=== PATIENT | female | born 1990 | race Caucasian/White ===

== ENCOUNTER 2016-12-07 15:09 | Emergency (ER) | payer MEDICAID, OTHER ==
[2016-12-07 15:15] VITALS: TEMP 98.6
[2016-12-07] MEDS ORDERED: NS 1,000 ML IV ONE ×2 (16:01→17:31)
[2016-12-07] MEDS ORDERED: ONDANSETRON 4 MG/2 ML VIAL IVP ONE ×2 (16:01→17:31)
[2016-12-07] MEDS ORDERED: ACETAMINOPHEN 500 MG TAB ONE (16:06)
[2016-12-07 16:09] LABS: % IMMATURE GRANULYOCYTES 0.3 % (0.0-1.1); ABSOLUTE IMMATURE GRANULOCYTES 0.04 10^3/uL (0.00-0.10); ADD DIFF? NO; ADD MORPH? NO; ADD SCAN? NO; ATYPICAL LYMPHOCYTE FLAG 0 (0-99); FRAGMENT RBC FLAG 0 (0-99); HEMATOCRIT 42.3 % (38.0-47.0); HEMOGLOBIN 14.1 g/dL (12.6-16.3); LEFT SHIFT FLG 0 (0-99); LIPEMIA HEMOLYSIS FLAG 80 (0-99); MEAN CELL HEMOGLOBIN 31.7 pg (27.9-34.1); MEAN CELL HEMOGLOBIN CONCENTR. 33.3 g/dL (32.4-36.7); MEAN CELL VOLUME 95.1 fL (81.5-99.8); PLATELET CLUMPS FLAG 10 (0-99); PLATELET COUNT 373 10^3/uL (150-400); RED BLOOD CELL COUNT 4.45 10^6/uL (4.18-5.33); RED CELL DISTRIBUTION WIDTH 11.9 % (11.5-15.2)
[2016-12-07] MEDS ORDERED: ACETAMINOPHEN 500 MG TAB PO ONE (16:11)
--- NOTE | 2016-12-07 16:12 | EDPHY ---
H & P Smoking Status: Never smoked Time Seen by Provider: 12/07/16 15:24 HPI/ROS: CHIEF COMPLAINT: Abdominal pain HISTORY OF PRESENT ILLNESS: 26-year-old female presents to the emergency department by private vehicle complaining of left and right lower quadrant abdominal pain. The patient states that the pain began rather abruptly approximately 2 hours prior to arrival. She states that it was so severe that she did not feel that she could walk. She felt that it was equal on both the left and the right lower side of her abdomen. She thinks that this is related to her ovaries. She has not had problems with ovarian cysts in the past. Denies any reported trauma. Denies any urinary symptoms. Denies chest pain or difficulty breathing. No back pain. Last menstrual period was 3 weeks ago. REVIEW OF SYSTEMS: Constitutional: No fever, no chills. Eyes: No double or blurry vision. ENT: No sore throat. Respiratory: No cough, no shortness of breath. Cardiac: No chest pain. Gastrointestinal: Abdominal pain as above. No vomiting or diarrhea Genitourinary: No dysuria. Musculoskeletal: No neck or back pain. Skin: No rashes. Neurological: No headache. (Fiordaliza Salomon) Past Medical/Surgical History: Recently treated for Helicobacter pylori (Aime,Fiordaliza M) Social History: and lives in [place] (Aime,Fiordaliza M) Physical Exam: General Appearance: Alert, no distress. Eyes: Pupils equal and round. Extraocular motions are all intact. ENT: Mouth: Mucous membranes moist. Respiratory: No wheezing, rhonchi, or rales, lungs are clear to auscultation. Cardiovascular: Regular rate and rhythm. Gastrointestinal: Abdomen is soft. She has tenderness with palpation mildly in the epigastric area as well as the left and the right lower quadrant. No rebound, guarding or masses noted. No CVA tenderness bilaterally. Neurological: Alert and oriented x 3, cranial nerves II through XII grossly intact Skin: Warm and dry, no rashes. Musculoskeletal: Nontender to palpate along the cervical, thoracic or lumbar spine. Neck is supple. Extremities: Full range of motion and no peripheral edema. Psychiatric: Patient is oriented X 3, there is no agitation. (Jerilyn Salomona M) Constitutional: Initial Vital Signs Temperature (C) 37 C 12/07/16 15:12 Heart Rate 84 08/30/17 15:12 Respiratory Rate 18 12/07/16 15:12 Blood Pressure 122/84 H 12/07/16 15:12 O2 Sat (%) 97 12/07/16 15:12 O2 Delivery Mode Room Air Allergies/Adverse Reactions: NSAIDS (Non-Steroidal Anti-Inflamma Allergy (Verified 12/07/16 15:11) Home Medications: Medication Instructions Recorded Hydrocodone/APAP 5/325 [[place] 1 tab PO Q6H PRN #10 tab 12/07/16 5/325 (RX)] Medical Decision Making - Diagnostics Imaging Results: Imaging Impressions Abdomen Ultrasound 12/07/16 16:02 Impression: 1. Complex hemorrhagic cyst versus less likely endometrioma left ovary. 2. Normal-appearing uterus and right ovary. 3. Normal appendix in the right lower quadrant. Findings discussed with Dr. Paula Pritchett at 17:23 hour, 12/07/2016. Pelvic/Renal Ultrasound 12/07/16 16:02 Impression: 1. Complex hemorrhagic cyst versus less likely endometrioma left ovary. 2. Normal-appearing uterus and right ovary. 3. Normal appendix in the right lower quadrant. Findings discussed with Dr. Paula Pritchett at 17:23 hour, 12/07/2016. ED Course/Re-evaluation: Ultrasound report called to me by Dr. Prado as demonstrating a 3.5 cm right ovarian hemorrhagic cyst. Left ovary is normal. Appendix is normal. Uterus is normal. On re-examination the patient reports her pain is feeling better. She does have mild bilateral lower adnexal tenderness to palpation. No flank tenderness. No urinary complaints. We discussed the patient's allergy nonsteroidals. She is currently being treated for H pylori and taking nonsteroidals by mouth causes her to have significant abdominal upset. We will try Toradol 15 mg IV with Zofran for nausea. Patient's symptoms were improved with the Toradol. She was discharged with a prepack of hydrocodone and a prescription for hydrocodone. 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 Return precautions were discussed at length. (Paula Pritchett) Differential Diagnosis: Including but not limited to urinary tract infection, pyelonephritis, kidney stone, ovarian cyst, ovarian torsion, acute appendicitis, intrauterine , ectopic (Fiordaliza Salomon) - Data Points Laboratory Results: Laboratory Results 12/07/16 15:19 12/07/16 15:19 12/07/16 12/07/16 12/07/16 16:15 15:19 15:19 WBC RBC Hgb Hct MCV MCH MCHC RDW Plt Count MPV Neut % (Auto) Lymph % (Auto) [place] % (Auto) Eos % (Auto) Baso % (Auto) Nucleat RBC Rel Count Absolute Neuts (auto) Absolute Lymphs (auto) Absolute Monos (auto) Absolute Eos (auto) Absolute Basos (auto) Absolute Nucleated RBC Immature Gran % Immature Gran # Sodium 139 mEq/L mEq/L (134-144) Potassium 4.0 mEq/L mEq/L (3.5-5.2) Chloride 102 mEq/L mEq/L (97-110) Carbon Dioxide 23 mEq/l mEq/l (22-31) Anion Gap 14 mEq/L mEq/L (8-16) BUN 13 mg/dL mg/dL (7-23) Creatinine 0.7 mg/dL mg/dL (0.6-1.0) Estimated GFR > 60 Glucose 81 mg/dL mg/dL (70-100) Calcium 10.3 mg/dL mg/dL (8.5-10.4) Beta HCG, Qual NEGATIVE Urine Color YELLOW Urine Appearance HAZY Urine pH 6.0 (5.0-7.5) Ur Specific [place] 1.023 (1.002-1.030) Urine Protein NEGATIVE (NEGATIVE) Urine Ketones NEGATIVE (NEGATIVE) Urine Blood NEGATIVE (NEGATIVE) Urine Nitrate NEGATIVE (NEGATIVE) Urine Bilirubin NEGATIVE (NEGATIVE) Urine Urobilinogen NEGATIVE EU EU (0.2-1.0) Ur Leukocyte Esterase NEGATIVE (NEGATIVE) Urine RBC 50-182 /hpf H /hpf (0-3) Urine WBC NONE SEEN /hpf /hpf (0-3) Ur Epithelial Cells 1+ /lpf /lpf (NONE-1+) Urine Mucus TRACE /lpf /lpf (NONE-1+) Urine Glucose NEGATIVE (NEGATIVE) 12/07/16 15:19 WBC 12.14 10^3/uL H 10^3/uL (3.80-9.50) RBC 4.45 10^6/uL 10^6/uL (4.18-5.33) Hgb 14.1 g/dL g/dL (12.6-16.3) Hct 42.3 % % (38.0-47.0) MCV 95.1 fL fL (81.5-99.8) MCH 31.7 pg pg (27.9-34.1) MCHC 33.3 g/dL g/dL (32.4-36.7) RDW 11.9 % % (11.5-15.2) Plt Count 373 10^3/uL 10^3/uL (150-400) MPV 10.0 fL fL (8.7-11.7) Neut % (Auto) 56.2 % % (39.3-74.2) Lymph % (Auto) 33.7 % % (15.0-45.0) [place] % (Auto) 5.4 % % (4.5-13.0) Eos % (Auto) 3.7 % % (0.6-7.6) Baso % (Auto) 0.7 % % (0.3-1.7) Nucleat RBC Rel Count 0.0 % % (0.0-0.2) Absolute Neuts (auto) 6.81 10^3/uL H 10^3/uL (1.70-6.50) Absolute Lymphs (auto) 4.09 10^3/uL H 10^3/uL (1.00-3.00) Absolute Monos (auto) 0.66 10^3/uL 10^3/uL (0.30-0.80) Absolute Eos (auto) 0.45 10^3/uL H 10^3/uL (0.03-0.40) Absolute Basos (auto) 0.09 10^3/uL 10^3/uL (0.02-0.10) Absolute Nucleated RBC 0.00 10^3/uL 10^3/uL (0-0.01) Immature Gran % 0.3 % % (0.0-1.1) Immature Gran # 0.04 10^3/uL 10^3/uL (0.00-0.10) Sodium Potassium Chloride Carbon Dioxide Anion Gap BUN Creatinine Estimated GFR Glucose Calcium Beta HCG, Qual Urine Color Urine Appearance Urine pH Ur Specific [place] Urine Protein Urine Ketones Urine Blood Urine Nitrate Urine Bilirubin Urine Urobilinogen Ur Leukocyte Esterase Urine RBC Urine WBC Ur Epithelial Cells Urine Mucus Urine Glucose Medications Given: Discontinued Medications Acetaminophen (Tylenol) 1,000 mg PO EDNOW ONE Stop: 12/07/16 16:12 Last Admin: 12/07/16 16:15 Dose: 1,000 mg Hydrocodone Bitart/Acetaminophen ([place] 5/325mg Prepack#6) 1 btl TAKEHOME EDNOW ONE Stop: 12/07/16 17:57 Last Admin: 12/07/16 19:18 Dose: 1 btl Sodium Chloride (Ns) 1,000 mls @ 0 mls/hr IV ONCE ONE PRN Reason: Wide Open Stop: 12/07/16 16:02 Last Admin: 12/07/16 16:15 Dose: 1,000 mls Sodium Chloride (Ns) 1,000 mls @ 0 mls/hr IV ONCE ONE; Wide Open PRN Reason: Protocol Stop: 12/07/16 17:32 Last Admin: 12/07/16 17:36 Dose: 1,000 mls Ketorolac Tromethamine (Toradol) 15 mg IVP EDNOW ONE Stop: 12/07/16 17:32 Last Admin: 12/07/16 17:37 Dose: 15 mg Ondansetron HCl (Zofran) 4 mg IVP EDNOW ONE Stop: 12/07/16 16:02 Last Admin: 12/07/16 16:15 Dose: 4 mg Ondansetron HCl (Zofran) 4 mg IVP EDNOW ONE Stop: 12/07/16 17:32 Last Admin: 12/07/16 18:36 Dose: 4 mg Departure - Departure Disposition: Home, Routine, Self-Care Clinical Impression: Hemorrhagic cyst of left ovary Condition: Good Instructions: Hydrocodone/Acetaminophen (By mouth), Ovarian Cyst (ED), Ruptured Ovarian Cyst (ED) Additional Instructions: I believe the pain is related to a complex left hemorrhagic cyst. Treatment for this is pain medications initially. You need to follow-up with your OBGYN physician for re-evaluation and repeat ultrasound in several weeks to ensure that the cyst has resolved. Okay to take hydrocodone as needed for pain. For mild pain you may use Tylenol. Please return to the emergency department or seek care urgently if the pain is worsening despite the above treatment, he developed lightheadedness, dizziness, fainting, significant vaginal bleeding, worsening pain, or other concerns. Referrals: NONE *PRIMARY CARE P,. [Primary Care Provider] - As per Instructions Prescriptions: Hydrocodone/APAP 5/325 [[place] 5/325 (RX)] 1 tab PO Q6H PRN #10 tab PRN Reason: Pain
[2016-12-07 16:13] LABS: ANION GAP 14 mEq/L (8-16); CALCIUM 10.3 mg/dL (8.5-10.4); CARBON DIOXIDE 23 mEq/l (22-31); CHLORIDE 102 mEq/L (97-110); CREATININE 0.7 mg/dL (0.6-1.0); GLOMERULAR FILTRATION RATE > 60; GLUCOSE 81 mg/dL (70-100); SODIUM 139 mEq/L (134-144)
[2016-12-07 16:31] LABS: COLOR YELLOW; LEUKOCYTE ESTERASE,URINE NEGATIVE (NEGATIVE); NITRITE,URINE NEGATIVE (NEGATIVE)
[2016-12-07 16:46] LABS: MUCUS TRACE /lpf (NONE-1+); RBC,URINE 50-182 /hpf (0-3)
[2016-12-07 16:47] LABS: WBC,URINE NONE SEEN /hpf (0-3)
[2016-12-07] MEDS ORDERED: KETOROLAC 30 MG/1 ML SDV IVP ONE (17:31)
[2016-12-07] MEDS ORDERED: HYDROCOD/APAP 5/325 PREPACK#6 BTL TAKEHOME ONE (17:56)
[2016-12-07 19:31] VITALS: BP 142/86; PULSE 80; RESP 16; O2SAT 96
== END 2016-12-07 19:31 | disposition home or self-care (01) ==
DX: N83.202 Unspecified ovarian cyst, left side (principal); E86.9 Volume depletion, unspecified
CPT/HCPCS: 96374; J1885; J2405